=== PATIENT | male | born 1970 | race Hispanic/Latino ===

== ENCOUNTER → 2019-09-21 | Day surgery (SDC) | payer BC, OTHER ==
[2019-09-16 11:14] LABS: ANION GAP 15.7 mmol/L (8-16); BLOOD UREA NITROGEN 11 mg/dL (7-26); BUN/CREATININE RATIO 12 (6-25); CALCIUM 9.3 mg/dL (8.4-10.2); CARBON DIOXIDE 25 mmol/L (22-29); CHLORIDE 105 mmol/L (98-107); CREATININE, SERUM 0.93 mg/dL (0.72-1.25); EST GLOMERULAR FILTRATION RATE > 60 ML/MIN (60-); GLUCOSE 209 mg/dL (74-118); POTASSIUM 4.7 mmol/L (3.5-5.1); SODIUM 141 mmol/L (136-145)
[~2019-09-21] MED LIST: ACTOS15 MG PO; CEFAZOLIN SOD 1 GM/NS 50ML 50 ML IV ONE; FENTANYL CITRATE/PF 100MCG/2 ML INJ ONE; INSULIN REGULAR, HUMAN 100 UNIT/1 ML 3ML VIAL ONE; INVOKANA300 MG PO; LISINOPRIL5 MG PO; LOVASTATIN10 MG PO; TRULICITY1.5 MG/0.5 SC
--- NOTE | 2019-09-21 07:59 | Operative Report ---
DATE OF PROCEDURE: 09/21/2019 SURGEON: Shoaib Rogers MD MEDICAL RECORDS RECEPTIONIST: Tino Garrison, certified PA. PREOPERATIVE DIAGNOSIS: Right knee medial meniscal tear. POSTOPERATIVE DIAGNOSIS: Right knee medial meniscal tear. PROCEDURE: Right knee arthroscopy, partial medial meniscectomy. INDICATIONS: The patient is a 49-year-old gentleman, who has clinic signs and symptoms consistent with a right knee medial meniscal tear. He has failed conservative management and would like to proceed with arthroscopic intervention. The risks and benefits of the procedure have been discussed. All of his questions have been answered. He states he understands and wishes to proceed. PROCEDURE IN DETAIL: The patient was brought to the operating room and placed under general anesthetic. His right lower extremity was prepped and draped in a sterile manner. A tourniquet was placed on the upper thigh and inflated to 300 mmHg. A preoperative time-out was performed. Standard arthroscopy portals were established. The knee was insufflated with sterile saline and systematically inspected. The patellofemoral groove was unremarkable. The medial compartment demonstrated a complex tear of the posterior horn of the medial meniscus. This was probed and photographed. This was debrided back to a stable margin using a combination of biting forceps and a mechanical shaver. Approximately 20% of the meniscus was excised. The anterior cruciate and posterior cruciate ligaments were intact and stable. The lateral compartment was unremarkable. The knee was thoroughly irrigated. The arthroscopic instruments were removed. The portal incisions were closed with nylon stitches. A sterile bandage was applied. There was no blood loss and all needle and sponge counts were correct. Shoaib Rogers MD DR/ABRIL /[id number]
[2019-09-21 08:45] VITALS: BP 120/70
== END | disposition home or self-care (01) ==
LOC: OR 05:46
PROVIDERS: ATTEND Specialist
DX: S83.231A Complex tear of medial meniscus, current injury, right knee, initial encounter (principal); E11.9 Type 2 diabetes mellitus without complications; I10 Essential (primary) hypertension; E78.5 Hyperlipidemia, unspecified; Y93.B1 Activity, exercise machines primarily for muscle strengthening; Y99.8 Other external cause status; Z01.810 Encounter for preprocedural cardiovascular examination; Z01.812 Encounter for preprocedural laboratory examination; Z11.59 Encounter for screening for other viral diseases; Z79.84 Long term (current) use of oral hypoglycemic drugs; Z68.41 Body mass index [BMI] 40.0-44.9, adult
CPT/HCPCS: 29881; 36415 ×2; 80048; 82948; 87635; 93005; J0690; J3010; J1817

== ENCOUNTER 2023-11-21 11:24 | Emergency (ER) | payer BC ==
[~2023-11-21] VITALS: Ht 165.1 cm; Wt 103.4 kg
[~2023-11-21 11:24] MED LIST changes: -CEFAZOLIN SOD 1 GM/NS 50ML 50 ML IV ONE; -FENTANYL CITRATE/PF 100MCG/2 ML INJ ONE; -INSULIN REGULAR, HUMAN 100 UNIT/1 ML 3ML VIAL ONE
[2023-11-21] MEDS ORDERED: OZEMPIC1 MG/0.71 (12:04)
[2023-11-21] MEDS ORDERED: TESTOSTERO200 MG/11 (12:04)
[2023-11-21] MEDS ORDERED: JARDIANCE10 MG (12:04)
[2023-11-21] MEDS ORDERED: DIFLUCAN200 MG PO (12:48)
[2023-11-21] MEDS ORDERED: HYDROXYZINE HCL25 MG PO (12:48)
[2023-11-21] MEDS ORDERED: NYSTATIN15 GM TOP (12:50)
[2023-11-21 13:13] VITALS: PULSE 86; RESP 16; TEMP 98.7; O2SAT 95
[2023-11-21] MEDS: DIPHENHYDRAMINE HCL INJ 50 MG/ML VIAL IM ONE (13:15)
[2023-11-21] MEDS: FAMOTIDINE 20 MG TAB PO ONE (13:16)
== END 2023-11-21 13:13 | disposition home or self-care (01) ==
LOC: FSED 11:38
DX: R50.9 Fever, unspecified (principal); B35.6 Tinea cruris; B37.89 Other sites of candidiasis; I10 Essential (primary) hypertension; E11.9 Type 2 diabetes mellitus without complications; E78.5 Hyperlipidemia, unspecified; F41.9 Anxiety disorder, unspecified
CPT/HCPCS: 96372; 99283; J1200